=== PATIENT | female | born 1970 | race Caucasian/White ===

== ENCOUNTER 2017-09-28 18:11 | Observation (INO) | payer OTHER ==
[~2017-09-28] VITALS: Ht 170.2 cm; Wt 75.6 kg
[~2017-09-28 18:11] MED LIST: DESYREL100 MG PO; DULOXETINE HCL60 MG PO; FLEXERIL10 MG PO; HYDROCODON-ACE1 EAC5 PO; LIPITOR20 MG PO; MODURETIC 5/1 TABLET PO; OXAPROZIN600 MG PO; SYNTHROID175 MCG PO; SYNTHROID200 MCG PO; TOPIRAMATE200 MG PO; ULTRAM50 MG PO; XANAX0.25 MG PO
[2017-09-28 18:35] LABS: BASOPHIL (%) 0.9 % (0-1); BASOPHIL COUNT 0.1 K/uL (0-0.1); EOSINOPHIL (%) 3.9 % (0-5); EOSINOPHIL COUNT 0.4 K/uL (0-0.3); HEMATOCRIT 42.9 % (36.0-46.0); HEMOGLOBIN 14.7 G/DL (11.9-15.5); IMMATURE GRANULOCYTE (%) 0.2 % (0.0-0.7); LYMPHOCYTE (%) 41.5 % (15-42); LYMPHOCYTE COUNT 3.9 K/uL (1.0-2.8); MCH 30.4 PG (29.0-34.0); MCHC 34.3 G/DL (30.0-36.0); MCV 88.8 FL (83-99); MONOCYTE (%) 7.2 % (3-12); MONOCYTE COUNT 0.7 K/uL (0-0.8); NEUTROPHIL (%) 46.3 % (45-76); NEUTROPHIL COUNT 4.3 K/uL (1.8-6.4); PLATELET COUNT 285 K/uL (156-360); RBC DIS.WIDTH-CV 12.2 % (11.8-14.6); RED BLOOD COUNT 4.83 M/uL (3.80-5.20); WHITE BLOOD COUNT 9.3 K/uL (4.1-10.2)
[2017-09-28 18:46] LABS: AMYLASE 36 IU/L (1-118); CHLORIDE 100 mEq/L (99-109); POTASSIUM 2.8 mEq/L (3.7-5.4); SODIUM 137 mEq/L (136-147)
[2017-09-28 18:48] LABS: GLUCOSE 91 mg/dL (70-99)
[2017-09-28 18:49] LABS: INTER. NORMALIZED RATIO 0.9
[2017-09-28 18:51] LABS: PTT 28.6 SEC (25-37); SERUM ETHYL ALCOHOL < 10 mg/dL
[2017-09-28 18:52] LABS: CREATININE 0.9 mg/dL (0.6-1.3); GFR ESTIMATE (CALCULATED) > 59 mL/min/; UREA NITROGEN (BUN) 12 mg/dL (9-23)
[2017-09-28 18:55] LABS: LIPASE 6 U/L (1.0-51.0); TROP-I INTERPRETATION NEGATIVE; TROPONIN-I 0.02 ng/mL (0.0-0.30)
[2017-09-28 19:00] LABS: QUANTITATIVE HCG < 4.0 MIU/ML
[2017-09-28 19:01] LABS: BILIRUBIN NEGATIVE; BLOOD NEGATIVE; COLOR YELLOW ((YELLOW)); GLUCOSE (STRIP) NEGATIVE; KETONES NEGATIVE; LEUKOCYTES NEGATIVE; NITRITE NEGATIVE; PROTEIN (STRIP) NEGATIVE; SPECIFIC GRAVITY 1.004 (1.000-1.030); UROBILINOGEN 0.2 MG/DL (0.2-1.0)
[2017-09-28 19:02] LABS: APPEARANCE CLEAR ((CLEAR)); UCUL ADDED? NO
[2017-09-28 19:28] LABS: AMPHETAMINE NEGATIVE (500 ng/mL); BARBITURATES NEGATIVE (200 ng/mL); BENZODIAZEPINES NEGATIVE (150 ng/mL); BUPRENORPHINE NEGATIVE (10 ng/mL); COCAINE NEGATIVE (150 ng/mL); METHADONE NEGATIVE (200 ng/mL); METHAMPHETAMINE NEGATIVE (500 ng/mL); OPIATES (MORPHINE) PRESUMPTIVE POSITIVE (100 ng/mL); OXYCODONE NEGATIVE (100 ng/mL); PHENCYCLIDINE NEGATIVE (25 ng/mL); PROPOXYPHENE NEGATIVE (300 ng/mL); THC CANNABINOIDS NEGATIVE (50 ng/mL); TRICYCLIC ANTIDEPRESSANTS NEGATIVE (300 ng/mL)
[2017-09-28 20:28] LABS: MAGNESIUM 2.2 mg/dL (1.3-2.7)
[2017-09-28] MEDS ORDERED: MICRO-K10 ME2 PO ×2 (20:32)
[2017-09-28] MEDS ORDERED: MAGNESIUM250 MG PO (20:33)
[2017-09-28] MEDS ORDERED: MAXALT MLT10 MG PO (20:33)
[2017-09-28] MEDS ORDERED: TYLENOL WITH C1 EACH PO (20:33)
[2017-09-28] MEDS ORDERED: TYLENOL ARTHRI650 MG PO (20:34)
[2017-09-28] MEDS ORDERED: VITAMIN B-2100 MG PO (20:34)
[2017-09-28] MEDS ORDERED: ARTIFICIAL TEAR1510 BOTH EYES (20:34)
[2017-09-28 21:00] VITALS: BP 135/83
[2017-09-29 04:23] VITALS: BP 90/52
[2017-09-29 06:27] LABS: CHLORIDE 105 MEQ/L (99-109); CREATININE 0.9 MG/DL (0.6-1.3); GFR ESTIMATE (CALCULATED) > 59 mL/min/; HDL CHOLESTEROL 69 MG/DL (Desirable>=50); LDL CHOLESTEROL 153 mg/dL (Desirable<100); MAGNESIUM 1.8 mg/dl (1.3-2.7); NON-HDL CHOLESTEROL 162 mg/dL (Desirable<160); POTASSIUM 3.3 MEQ/L (3.7-5.4); SODIUM 137 MEQ/L (136-147); TOTAL CHOLESTEROL 231 mg/dL (Desirable<200); TRIGLYCERIDES 43 MG/DL (Normal: <150); UREA NITROGEN (BUN) 17 mg/dL (9-23)
[2017-09-29 06:30] LABS: GLUCOSE 200 mg/dL (70-99)
[2017-09-29 09:20] VITALS: BP 108/58
[2017-09-29 09:58] LABS: HEMOGLOBIN A1c (GLYCOHEMOGLOB) 5.3 % (Below 5.7)
[2017-09-29 17:05] VITALS: BP 99/58
[2017-09-29 20:00] VITALS: BP 109/71
[2017-09-29 23:56] VITALS: BP 102/61
[2017-09-30 04:41] VITALS: BP 105/63
[2017-09-30 05:40] LABS: BASOPHIL (%) 0.6 % (0-1); BASOPHIL COUNT 0.1 K/uL (0-0.1); EOSINOPHIL (%) 2.2 % (0-5); EOSINOPHIL COUNT 0.2 K/uL (0-0.3); HEMATOCRIT 38.8 % (36.0-46.0); HEMOGLOBIN 12.8 G/DL (11.9-15.5); IMMATURE GRANULOCYTE (%) 0.2 % (0.0-0.7); LYMPHOCYTE (%) 47.1 % (15-42); LYMPHOCYTE COUNT 4.3 K/uL (1.0-2.8); MCH 30.5 PG (29.0-34.0); MCV 92.4 FL (83-99); MONOCYTE COUNT 0.5 K/uL (0-0.8); NEUTROPHIL (%) 44.9 % (45-76); NEUTROPHIL COUNT 4.1 K/uL (1.8-6.4); PLATELET COUNT 223 K/uL (156-360); RBC DIS.WIDTH-CV 12.8 % (11.8-14.6); RBC DIS.WIDTH-SD 43.1 % (39-53)
[2017-09-30 06:27] LABS: ALBUMIN 3.2 G/DL (3.2-4.8); ALKALINE PHOSPHATASE 63 IU/L (3-129); ALT (GPT) 9 IU/L (3-49); AST (GOT) 12 IU/L (2-34); CHLORIDE 114 MEQ/L (99-109); CREATININE 0.9 MG/DL (0.6-1.3); GFR ESTIMATE (CALCULATED) > 59 mL/min/; POTASSIUM 3.7 MEQ/L (3.7-5.4); SODIUM 141 MEQ/L (136-147); TOTAL BILIRUBIN 0.2 MG/DL (0.0-1.0); UREA NITROGEN (BUN) 15 mg/dL (9-23)
[2017-09-30 06:29] LABS: GLUCOSE 94 mg/dL (70-99)
[2017-09-30 09:00] VITALS: BP 109/71
[2017-09-30] MEDS ORDERED: ASPIR-LOW81 MG PO (11:45)
[2017-09-30] MEDS ORDERED: PRAVASTATIN SOD40 MG PO (11:45)
[2017-09-30] MEDS ORDERED: BUTALB-APAP-CA1 EACH PO (11:46)
[2017-09-30 11:47] VITALS: BP 97/57
== END 2017-09-30 14:25 | disposition home or self-care (01) ==
LOC: EME 18:11 → EDOF 19:36 → 4SOUTH 19:36 → ENRESERV 19:37 → 4SOUTH 20:48
PROVIDERS: Emergency Medicine; Hospitalist; Physician Assistant Medical
DX: G43.109 Migraine with aura, not intractable, without status migrainosus (principal); E87.6 Hypokalemia; E78.5 Hyperlipidemia, unspecified; M79.7 Fibromyalgia; G93.0 Cerebral cysts; Z86.718 Personal history of other venous thrombosis and embolism; E89.0 Postprocedural hypothyroidism; G89.29 Other chronic pain; M26.619 Adhesions and ankylosis of temporomandibular joint, unspecified side; Z87.11 Personal history of peptic ulcer disease; D50.9 Iron deficiency anemia, unspecified; Z98.1 Arthrodesis status; Z82.49 Family history of ischemic heart disease and other diseases of the circulatory system; Z82.0 Family history of epilepsy and other diseases of the nervous system; Z88.0 Allergy status to penicillin; Z90.49 Acquired absence of other specified parts of digestive tract
CPT/HCPCS: 70450; 70496; 70498; 70551; 80048; 80053; 80061; 81003; 82150; 82948; 83036; 83690; 83735; 84484; 84702; 84999; 85025; 85610; 85730; 86850; 86900; 86901; 87651 90; 93005; 95819; 99281; 99285; G0378; G0480; J1200; J1650; J1885; J2405; J2765; J2930; J3480; J7030

== ENCOUNTER 2017-11-25 19:10 | Emergency (ER) | payer OTHER ==
[~2017-11-25] VITALS: Ht 170.2 cm; Wt 76.1 kg
[~2017-11-25 19:10] MED LIST changes: +ARTIFICIAL TEAR1510 BOTH EYES; +ASPIR-LOW81 MG PO; +BUTALB-APAP-CA1 EACH PO; +MAGNESIUM250 MG PO; +MAXALT MLT10 MG PO; +MICRO-K10 ME2 PO; +PRAVASTATIN SOD40 MG PO; +TYLENOL ARTHRI650 MG PO; +TYLENOL WITH C1 EACH PO; +VITAMIN B-2100 MG PO
[2017-11-25 19:38] LABS: HEMATOCRIT 41.1 % (36.0-46.0); HEMOGLOBIN 14.1 G/DL (11.9-15.5); MCH 30.5 PG (29.0-34.0); MCHC 34.3 G/DL (30.0-36.0); MCV 88.8 FL (83-99); PLATELET COUNT 236 K/uL (156-360); RBC DIS.WIDTH-SD 42.2 % (39-53); RED BLOOD COUNT 4.63 M/uL (3.80-5.20); WHITE BLOOD COUNT 8.8 K/uL (4.1-10.2)
[2017-11-25 19:55] LABS: CHLORIDE 105 mEq/L (99-109); POTASSIUM 3.5 mEq/L (3.7-5.4); SODIUM 138 mEq/L (136-147)
[2017-11-25 19:57] LABS: GLUCOSE 120 mg/dL (70-99)
[2017-11-25 20:00] LABS: GFR ESTIMATE (CALCULATED) > 59 mL/min/
[2017-11-25 20:01] LABS: UREA NITROGEN (BUN) 22 mg/dL (9-23)
[2017-11-25] MEDS ORDERED: ZOFRAN4 MG PO (23:24)
[2017-11-25 23:31] LABS: TROP-I INTERPRETATION NEGATIVE; TROPONIN-I < 0.01 ng/mL (0.0-0.30)
[2017-11-25 23:46] VITALS: BP 106/69
== END 2017-11-26 00:11 | disposition home or self-care (01) ==
LOC: EME 19:10
DX: R19.7 Diarrhea, unspecified (principal); R11.2 Nausea with vomiting, unspecified; R55 Syncope and collapse; M79.7 Fibromyalgia; M41.9 Scoliosis, unspecified; F32.9 Major depressive disorder, single episode, unspecified; G43.909 Migraine, unspecified, not intractable, without status migrainosus; Z90.49 Acquired absence of other specified parts of digestive tract; Z88.0 Allergy status to penicillin
CPT/HCPCS: 71046; 80048; 84484; 85027; 93005; 99281; 99285